=== PATIENT | male | born 1980 | race Native Hawaiian/Other Pacific Islander ===

== ENCOUNTER 2016-04-06 16:52 | Outpatient (CLI) | payer BC | END 2016-04-06 17:52 | disposition home or self-care (01) | LOC: CT 16:52 | DX: R51 Headache (principal) ==

== ENCOUNTER 2018-02-06 18:04 | Outpatient (CLI) | payer BC | END 2018-02-06 20:17 | disposition home or self-care (01) | LOC: CT 18:04 | DX: D84.1 Defects in the complement system (principal) ==

== ENCOUNTER 2019-10-17 19:21 | Emergency (ER) | payer BC ==
[~2019-10-17] VITALS: Ht 180.3 cm; Wt 104.8 kg
[2019-10-17 22:00] VITALS: BP 130/72; TEMP 98.2
== END 2019-10-17 22:00 | disposition home or self-care (01) ==
LOC: ED 19:21
DX: T81.31XA Disruption of external operation (surgical) wound, not elsewhere classified, initial encounter (principal); Y83.8 Other surgical procedures as the cause of abnormal reaction of the patient, or of later complication, without mention of misadventure at the time of the procedure
CPT/HCPCS: 92977; 96372; 99283; J0690

== ENCOUNTER 2021-09-11 14:50 | Outpatient (CLI) | payer BC | END 2021-09-11 19:03 | disposition home or self-care (01) | LOC: RAD 14:50 | PROVIDERS: ATTEND Registered Nurse | DX: J20.8 Acute bronchitis due to other specified organisms (principal) ==